=== PATIENT | female | born 1960 | race Caucasian/White ===

== ENCOUNTER → 2018-07-07 | Emergency (ER) | payer OTHER ==
[~2018-07-07] VITALS: Ht 172.7 cm; Wt 89.4 kg
[~2018-07-07] MED LIST: AUGMENTIN 875-875 MG PO; COUMADIN4 M1 PO; PRAVACHOL10 MG PO; SYNTHROID,LEV100 MCG PO; VITAMIN D50000 I1 PO
== END ==
LOC: ED 19:38
DX: S41.151A Open bite of right upper arm, initial encounter (principal); S40.021A Contusion of right upper arm, initial encounter; R60.0 Localized edema; Z79.899 Other long term (current) drug therapy; W55.11XA Bitten by horse, initial encounter; Y93.89 Activity, other specified; Y92.89 Other specified places as the place of occurrence of the external cause; Y99.8 Other external cause status

== ENCOUNTER 2020-11-13 13:31 | Emergency (ER) | payer OTHER ==
[~2020-11-13] VITALS: Ht 172.7 cm; Wt 86.2 kg
[2020-11-13 14:43] LABS: BASO % 0.1 % (0.0-1.0); HEMATOCRIT 41.1 % (37.0-47.0); LYMPH # 1.2 10*3/uL (1.3-4.4); LYMPH % 18.2 % (27.0-41.0); MEAN CELL VOLUME 84.7 fl (81.0-99.0); MEAN CORPUSCULAR HGB 28.9 pg (27.0-31.0); MEAN CORPUSCULAR HGB CONC 34.1 g/dl (33.0-37.0); MEAN PLATELET VOLUME 10.7 fl (9.6-12.3); MONO # 0.5 10*3/uL (0.1-1.0); MONO % 7.1 % (3.0-9.0); NEUT % 74.2 % (47.0-73.0); PLATELET COUNT AUTOMATED 200 10*3/uL (130-400); RED BLOOD COUNT 4.85 10*6/uL (4.10-5.10); RED CELL DISTRI WIDTH 12.2 % (0-14.5); WHITE BLOOD COUNT 6.7 10*3/uL (4.8-10.8)
[2020-11-13 14:55] LABS: BUN 16 mg/dl (7-24); CHLORIDE 104 mmol/L (98-107); CREATININE 0.85 mg/dL (0.55-1.02); POTASSIUM 3.4 mmol/L (3.5-5.1); SODIUM 137 mmol/L (136-145)
[2020-11-13] MEDS ORDERED: GOOD NEIGHBOR M25 M1 PO (15:04)
== END 2020-11-13 15:17 | disposition home or self-care (01) ==
LOC: ED 13:31
PROVIDERS: Emergency Medicine
DX: H81.12 Benign paroxysmal vertigo, left ear (principal); I10 Essential (primary) hypertension; Z79.899 Other long term (current) drug therapy

== ENCOUNTER 2021-03-01 14:13 | Emergency (ER) | payer OTHER ==
[~2021-03-01] VITALS: Ht 172.7 cm; Wt 86.2 kg
[~2021-03-01 14:13] MED LIST changes: +GOOD NEIGHBOR M25 M1 PO; -SYNTHROID,LEV100 MCG PO; +Synthroid,Levo50 MCG PO
[2021-03-01 14:21] VITALS: BP 139/81
[2021-03-01] MEDS ORDERED: HYDROCHLOROTHIA25 M1 PO (14:24)
[2021-03-01 15:01] LABS: BASO % 0.3 % (0.0-1.0); EOS # 0.1 10*3/uL (0.0-0.4); EOS % 1.2 % (1.0-4.0); HEMATOCRIT 40.9 % (37.0-47.0); LYMPH # 1.9 10*3/uL (1.3-4.4); LYMPH % 28.9 % (27.0-41.0); MEAN CELL VOLUME 87.4 fl (81.0-99.0); MEAN CORPUSCULAR HGB 28.6 pg (27.0-31.0); MEAN CORPUSCULAR HGB CONC 32.8 g/dl (33.0-37.0); MEAN PLATELET VOLUME 10.7 fl (9.6-12.3); MONO # 0.4 10*3/uL (0.1-1.0); MONO % 6.9 % (3.0-9.0); NEUT % 62.5 % (47.0-73.0); PLATELET COUNT AUTOMATED 220 10*3/uL (130-400); RED BLOOD COUNT 4.68 10*6/uL (4.10-5.10); RED CELL DISTRI WIDTH 12.4 % (0-14.5); WHITE BLOOD COUNT 6.4 10*3/uL (4.8-10.8)
[2021-03-01 15:16] LABS: ALBUMIN 3.7 gm/dl (3.1-4.5); ALKALINE PHOSPHATASE 102 U/L (45-117); BUN 16 mg/dl (7-24); CHLORIDE 106 mmol/L (98-107); CREATININE 0.86 mg/dL (0.55-1.02); POTASSIUM 3.4 mmol/L (3.5-5.1); SGOT/AST 28 IU/L (3-35); SGPT/ALT 31 U/L (12-78); SODIUM 141 mmol/L (136-145); TOTAL PROTEIN 7.3 gm/dL (6.4-8.2)
[2021-03-01 17:05] VITALS: BP 121/73
[2021-03-01 19:50] VITALS: BP 100/56
[2021-03-01 20:07] VITALS: BP 128/71
[2021-03-02 01:23] VITALS: BP 130/70
[2021-03-02 05:10] LABS: ALBUMIN 3.2 gm/dl (3.1-4.5); ALKALINE PHOSPHATASE 91 U/L (45-117); BUN 14 mg/dl (7-24); CHLORIDE 107 mmol/L (98-107); CHOLESTEROL 198 mg/dL (<200); CREATININE 0.91 mg/dL (0.55-1.02); FREE T4 0.91 ng/dl (0.76-1.46); LDL CHOLESTEROL 132 mg/dL (9-159); POTASSIUM 3.6 mmol/L (3.5-5.1); SGOT/AST 19 IU/L (3-35); SGPT/ALT 26 U/L (12-78); SODIUM 140 mmol/L (136-145); TOTAL PROTEIN 6.8 gm/dL (6.4-8.2); TRIGLYCERIDES 77 mg/dl (<150)
[2021-03-02 05:30] VITALS: BP 139/78
[2021-03-02 06:01] LABS: BASO % 0.3 % (0.0-1.0); EOS # 0.1 10*3/uL (0.0-0.4); EOS % 1.6 % (1.0-4.0); LYMPH # 2.3 10*3/uL (1.3-4.4); LYMPH % 36.7 % (27.0-41.0); MEAN CELL VOLUME 89.7 fl (81.0-99.0); MEAN CORPUSCULAR HGB 29.1 pg (27.0-31.0); MEAN CORPUSCULAR HGB CONC 32.5 g/dl (33.0-37.0); MEAN PLATELET VOLUME 11.2 fl (9.6-12.3); MONO # 0.6 10*3/uL (0.1-1.0); MONO % 9.1 % (3.0-9.0); NEUT # 3.2 10*3/uL (2.3-7.9); NEUT % 52.1 % (47.0-73.0); PLATELET COUNT AUTOMATED 187 10*3/uL (130-400); RED BLOOD COUNT 4.46 10*6/uL (4.10-5.10); RED CELL DISTRI WIDTH 12.3 % (0-14.5); WHITE BLOOD COUNT 6.2 10*3/uL (4.8-10.8)
[2021-03-02 07:06] LABS: VITAMIN D, 25-HYDROXY 36.7 ng/mL (30-100)
[2021-03-02 07:35] VITALS: BP 117/66
[2021-03-02] MEDS ORDERED: ELIQUIS5 M1 PO (14:34)
== END 2021-03-02 15:20 | disposition home or self-care (01) ==
LOC: ED 14:13 → EDHOLD 16:17 → ED 03-02 15:20
PROVIDERS: Family Medicine; Registered Nurse
DX: M79.605 Pain in left leg (principal); Z79.899 Other long term (current) drug therapy

== ENCOUNTER 2021-03-01 16:16 | Inpatient (IN) | payer OTHER ==
[~2021-03-01 16:16] MED LIST changes: +HYDROCHLOROTHIA25 M1 PO
[2021-03-02] MEDS ORDERED: ELIQUIS5 M1 PO (14:34)
== END 2021-03-02 15:38 | disposition home or self-care (01) | DRG 149 ==
LOC: EDHOLD 16:16 → 4E 03-02 14:05 → EDHOLD 03-02 14:05
PROVIDERS: ADMIT Internal Medicine; ATTEND Internal Medicine
DX: R42 Dizziness and giddiness (principal); R07.89 Other chest pain; E87.6 Hypokalemia; E03.9 Hypothyroidism, unspecified; I10 Essential (primary) hypertension; R73.9 Hyperglycemia, unspecified; Z86.718 Personal history of other venous thrombosis and embolism; Z86.711 Personal history of pulmonary embolism; Z82.49 Family history of ischemic heart disease and other diseases of the circulatory system; Z79.899 Other long term (current) drug therapy

== ENCOUNTER 2024-06-06 14:04 | Emergency (ER) | payer OTHER ==
[~2024-06-06] VITALS: Ht 172.7 cm; Wt 88.5 kg
[~2024-06-06 14:04] MED LIST changes: +ELIQUIS5 M1 PO
[2024-06-06] MEDS ORDERED: SODIUM CHLORIDE 0.9% 1,000 ML IV ONE (14:25)
[2024-06-06] MEDS ORDERED: ADENOSINE 6 MG/2 ML VIAL IV ONE ×2 (14:30)
[2024-06-06] MEDS ORDERED: Metoprolol Tartrate 5 MG/5 ML VIAL IV ONE (14:30)
[2024-06-06 14:54] LABS: BASO % 0.2 % (0.0-1.0); EOS # 0.1 10*3/uL (0.0-0.4); EOS % 1.2 % (1.0-4.0); HEMATOCRIT 39.3 % (37.0-47.0); MEAN CELL VOLUME 88.1 fl (81.0-99.0); MEAN CORPUSCULAR HGB 28.5 pg (27.0-31.0); MEAN CORPUSCULAR HGB CONC 32.3 g/dl (33.0-37.0); MEAN PLATELET VOLUME 10.2 fl (9.6-12.3); MONO # 0.6 10*3/uL (0.1-1.0); MONO % 7.6 % (3.0-9.0); NEUT # 5.5 10*3/uL (2.3-7.9); NEUT % 67.3 % (47.0-73.0); PLATELET COUNT AUTOMATED 237 10*3/uL (130-400); RED BLOOD COUNT 4.46 10*6/uL (4.10-5.10); RED CELL DISTRI WIDTH 13.1 % (0-14.5); WHITE BLOOD COUNT 8.1 10*3/uL (4.8-10.8)
[2024-06-06 15:20] LABS: BUN 20 mg/dl (9-23); CHLORIDE 107 mmol/L (98-107); POTASSIUM 3.3 mmol/L (3.4-5.1)
[2024-06-06] MEDS ORDERED: POTASSIUM CHLORIDE 20 MEQ TAB PO ONE (15:25)
[2024-06-06] MEDS ORDERED: LOPRESSOR25 MG PO (15:33)
== END 2024-06-06 15:51 | disposition home or self-care (01) ==
LOC: ED 14:04
PROVIDERS: Emergency Medicine
DX: I47.10 Supraventricular tachycardia, unspecified (principal); M54.2 Cervicalgia; R53.1 Weakness; R42 Dizziness and giddiness; Z86.718 Personal history of other venous thrombosis and embolism; Z98.890 Other specified postprocedural states

== ENCOUNTER → 2024-06-22 | Day surgery (SDC) | payer OTHER ==
[~2024-06-22] VITALS: Ht 172.7 cm; Wt 95.3 kg
[~2024-06-22] MED LIST changes: +Albuterol Sulf/Ipratropium 3 ML VIAL NEB ONE; +Albuterol Sulfate 2.5 MG/0.5 ML VIAL NEB ONE; +LOPRESSOR25 MG PO; +Lactated Ringer's Solution 500 ML IV ONE; +Lidocaine Hydrochloride 4% 5 ML AMP NEB ONE; +Lidocaine Hydrochloride 4% 5 ML AMP ONE; +Lidocaine Hydrochloride 5 ML VIAL IV ONE; +PROPOFOL 200 MG/20 ML VIAL IV ONE
[2024-06-22 08:30] VITALS: BP 138/73
[2024-06-22 10:06] VITALS: BP 141/71
[2024-06-22 10:21] VITALS: BP 144/66
[2024-06-22 10:36] VITALS: BP 123/66
[2024-06-22 12:15] LABS: BF LYMPHOCYTES 52 %; BF MACROPHAGES 48 %
[2024-06-23 12:05] LABS: ACID FAST SPEC PROCESSING Concentration (.)
== END | disposition home or self-care (01) ==
LOC: SDC 06-21 11:00
PROVIDERS: ATTEND Internal Medicine Critical Care Medicine
DX: R91.1 Solitary pulmonary nodule (principal); R05.9 Cough, unspecified; I10 Essential (primary) hypertension; E07.9 Disorder of thyroid, unspecified; Z90.49 Acquired absence of other specified parts of digestive tract; Z90.89 Acquired absence of other organs; Z98.890 Other specified postprocedural states; Z79.890 Hormone replacement therapy; Z79.899 Other long term (current) drug therapy; Z83.3 Family history of diabetes mellitus; Z82.49 Family history of ischemic heart disease and other diseases of the circulatory system

== ENCOUNTER → 2024-09-28 | Outpatient (CLI) | payer OTHER ==
[~2024-09-28] MED LIST changes: -Albuterol Sulf/Ipratropium 3 ML VIAL NEB ONE; -Albuterol Sulfate 2.5 MG/0.5 ML VIAL NEB ONE; -Lactated Ringer's Solution 500 ML IV ONE; -Lidocaine Hydrochloride 4% 5 ML AMP NEB ONE; -Lidocaine Hydrochloride 4% 5 ML AMP ONE; -Lidocaine Hydrochloride 5 ML VIAL IV ONE; -PROPOFOL 200 MG/20 ML VIAL IV ONE
== END | disposition home or self-care (01) ==
LOC: CT 10:00
PROVIDERS: ATTEND Internal Medicine Critical Care Medicine
DX: R91.8 Other nonspecific abnormal finding of lung field (principal); K76.0 Fatty (change of) liver, not elsewhere classified

== ENCOUNTER 2024-12-29 10:56 | Emergency (ER) | payer OTHER ==
[~2024-12-29] VITALS: Ht 172.7 cm; Wt 93.0 kg
[2024-12-29] MEDS ORDERED: NITROGLYCERIN 1 IN PACKET T ONE (11:15)
[2024-12-29] MEDS ORDERED: ASPIRIN 325 MG TAB PO ONE (11:15)
[2024-12-29 11:26] LABS: BASO # 0.0 10*3/uL (0.0-0.1); BASO % 0.4 % (0.0-1.0); EOS # 0.1 10*3/uL (0.0-0.4); EOS % 1.9 % (1.0-4.0); MEAN CELL VOLUME 88.7 fl (81.0-99.0); MEAN CORPUSCULAR HGB 28.3 pg (27.0-31.0); MEAN PLATELET VOLUME 10.4 fl (9.6-12.3); MONO # 0.7 10*3/uL (0.1-1.0); MONO % 9.8 % (3.0-9.0); NEUT # 4.1 10*3/uL (2.3-7.9); NEUT % 59.9 % (47.0-73.0); NUCLEATED RED BLOOD CELL 0.0 % (0.0-0.0); NUCLEATED RED BLOOD CELL 0.0 10*3/uL (0.0-0.0); PLATELET COUNT AUTOMATED 198 10*3/uL (130-400); RED CELL DISTRI WIDTH 13.2 % (0-14.5)
[2024-12-29 11:51] LABS: BUN 20 mg/dl (9-23); CPK 167 U/L (34-171)
[2024-12-29] MEDS ORDERED: Dexamethasone Sodium Phospha 20 MG/5 ML VIAL IV ONE (14:00)
[2024-12-29] MEDS ORDERED: ALBUTEROL 8 GM INHALER INH ONE (14:00)
[2024-12-29] MEDS ORDERED: PREDNISONE20 M1 PO (14:03)
== END 2024-12-29 14:11 | disposition home or self-care (01) ==
LOC: ED 10:56
PROVIDERS: Emergency Medicine
DX: M94.0 Chondrocostal junction syndrome [Tietze] (principal); R07.2 Precordial pain; R06.00 Dyspnea, unspecified; Z79.899 Other long term (current) drug therapy; Z90.49 Acquired absence of other specified parts of digestive tract; Z20.822 Contact with and (suspected) exposure to COVID-19

== ENCOUNTER → 2025-01-26 | Outpatient (CLI) | payer OTHER ==
[~2025-01-26] MED LIST changes: +PREDNISONE20 M1 PO
== END | disposition home or self-care (01) ==
LOC: CT 01-17 10:00
PROVIDERS: ATTEND Internal Medicine Critical Care Medicine
DX: J98.4 Other disorders of lung (principal); R05.3 Chronic cough; R91.8 Other nonspecific abnormal finding of lung field; Z68.34 Body mass index [BMI] 34.0-34.9, adult